=== PATIENT | male | born 1960 | race Caucasian/White ===

== ENCOUNTER 2022-07-10 07:59 | Outpatient (CLI) | payer OTHER, SELFPAY ==
[2022-07-10 11:02] LABS: Cholesterol* 185 mg/dL (90-199)
[2022-07-10 11:03] LABS: HDL Cholesterol* 67 mg/dL (>=40); LDL Cholesterol Calculated 100 mg/dL (<100); Triglycerides* 90 mg/dL (40-149)
[2022-07-10 11:35] LABS: PSA Screen* 1.05 ng/mL (0.10-4.00)
== END 2022-07-10 08:00 | disposition home or self-care (01) ==
LOC: NFLDREF 07:59
PROVIDERS: PCP Family Medicine; Visit Provider Family Medicine
DX: E78.5 Hyperlipidemia, unspecified (principal); Z12.5 Encounter for screening for malignant neoplasm of prostate
CPT/HCPCS: 80061; 84153

== ENCOUNTER 2023-04-18 12:36 | Observation (INO) | payer OTHER, SELFPAY ==
[2023-04-18] VITALS (22 sets, daily range): BP systolic 110–147; BP diastolic 72–102; PULSE 48–63; RESP 11–18; TEMP 36.5–36.6; O2SAT 95–100; BMI 24.1; BMI 25.6
--- NOTE | 2023-04-18 13:31 | CRLHL7_ITS ---
For Patients: As a result of the Century Cures Act, medical imaging exams and procedure reports are released immediately into your electronic medical record. You may view this report before your referring provider. If you have questions, please contact your health care provider. INDICATION: Headache and confusion TECHNIQUE: CT head without contrast. COMPARISON: None. FINDINGS: CSF spaces: Within normal limits for age. Brain parenchyma: The de leon-white differentiation is normal. No sign of mass, hemorrhage, or midline shift. Skull base and calvarium: Mucous retention cyst left maxillary sinus. The visualized orbits are grossly unremarkable. No skull fractures. IMPRESSION: Unremarkable noncontrast head CT. Please note that all CT scans at this facility use dose modulation, iterative reconstruction, and/or weight-based dosing when appropriate to reduce radiation dose to as low as reasonably achievable. Dictated by Andrew Lan MD @ 04/18/2023 1:54:08 PM (Electronically Signed)
--- NOTE | 2023-04-18 13:31 | ED_ITS ---
HPI - General Adult General Time Seen by Provider: 12:43 Date Seen: 04/18/23 Chief complaint: Neuro Symptoms/Altered Deficit Stated complaint: confusion, headache Time Seen by Provider: 04/18/23 12:43 Source: patient, family, RN notes reviewed and old records reviewed Mode of arrival: ambulatory Limitations: no limitations History of Present Illness HPI narrative: Francisco is a very pleasant 62-year-old healthy gentleman who comes to the emergency room with his for complaints of 1 hour confusion and difficulty with word finding. Approximately 1100 hours Francisco noticed he was having a hard time with remembering the names of streets and he states that he was writing emails and nothing would look normal. He feels like he is back to normal now although his states he is probably 75% of normal. He agrees he has a slight headache in the left gnosticism. He notes that he has some blurred vision of his left eye but this has been chronic as he states that he has been recently diagnosed with dry eye by the certified legal secretary specialist and been on drops. He has not noticed a real change in his vision. He denies any numbness or tingling, recent head trauma or falls. He denies any nausea vomiting. He has not had any alcohol today. Related Data Home Medications Medication Instructions Recorded Confirmed hbasevkx-cj-cscbu 300 mcg-K 60 1 tab PO DAILY 04/18/23 05/19/23 mcg-lycop 600 mcg-lutein 300 mcg tablet (Centrum Silver Men) omega 0-lkl-heu-fish oil 1,000 mg 2 cap PO DAILY 04/18/23 05/19/23 (120 mg-180 mg) capsule (Fish Oil) Previous Rx's Medication Instructions Recorded aspirin 81 mg chewable tablet 81 mg PO DAILY #90 tabs 04/19/23 (Children's Aspirin) Allergies Allergy/AdvReac Type Severity Reaction Status Date / Time No Known Allergies Allergy Unknown Unknown Verified 05/19/23 10:48 Review of Systems Status of ROS: Reports: 10 or more systems reviewed and unremarkable except as noted in History and below Eyes: Denies: change in vision ENMT: Denies: neck pain or difficulty swallowing Cardio: Denies: chest pain or shortness of breath with exertion Resp: Denies: shortness of breath GI: Denies: abdominal pain, nausea, vomiting or difficulty swallowing : Denies: painful urination Musculo: Denies: neck pain PFSH PFS Medical History (Updated 04/27/23 @ 00:00 by Background Danohemy) Bright red blood per rectum ?K62.5 - Hemorrhage of anus and rectum (ICD-10) Tubular adenoma of colon ?D12.6 - Benign neoplasm of colon, unspecified (ICD-10) Impingement syndrome of right shoulder ?M75.41 - Impingement syndrome of right shoulder (ICD-10) Surgical History (Updated 04/18/23 @ 19:46 by Mary Beth Todd MD) H/O cataract removal with insertion of prosthetic lens ?Z98.49 - Cataract extraction status, unspecified eye (ICD-10) ?Z96.1 - Presence of intraocular lens (ICD-10) History of laser assisted in situ keratomileusis ?Z98.890 - Other specified postprocedural states (ICD-10) Family History (Updated 04/18/23 @ 19:47 by Mary Beth Todd MD) Mother Primary malignant neoplasm of ocular adnexa Social History (Updated 04/18/23 @ 19:48 by Mary Beth Todd MD) Narrative: . Lives independently. Smoked socially, 1 cig/week for a few years in the . 1-2 beers per day. Denies recreational drug use. What is your current living situation?: I presently have a place to live Problems where you live: no known problems Problems where you live details: n/a In the past 12 months, utilities in danger of being shut off: no In past 12 months, lack of transportation kept you from medical appts, meetings, work, or getting things needed for daily living: no In the past 12 mos, have been you worried that your food would run out before you had money to buy more?: never true In the past 12 mos, the food you bought just didn't last and you didn't have money to buy more?: never true Highest level of school completed/degree received: Bachelor's degree Smoking Status: Never smoker How often do you have a drink containing alcohol: 2-3 times a week Alcohol type: beer and wine How many standard drinks containing alcohol do you have on a typical day: 1 or 2 AUDIT-C Alcohol total score: 3 Non-prescribed substance use: denies use Caffeine: Yes How often does anyone, including family, friends and others, physically hurt you : never How often does anyone, including family, friends and others, insult or talk down to you: never How often does anyone, including family, friends and others, threaten you with harm: never How often does anyone, including family, friends and others, scream or curse at you: never Little interest or pleasure in doing things: not at all Feeling down, depressed, or hopeless: not at all service: No Exam Narrative: Exam Narrative: Patient is alert and oriented. Some hesitation answering questions but answers are appropriate. No evidence of slurred speech. NIH SS 0. EOM is full and pupils equal round reactive. Nose visual field cut. Head is atraumatic normocephalic. Neck is supple. Heart is with regular rate and rhythm and lungs are clear bilaterally. Moving all extremities. Strength and motor all intact. Sensation intact. Const: Vital Signs, click to edit/add: Vital Signs - 24 hr 04/18/23 13:35 04/18/23 14:31 04/18/23 14:46 Temperature 97.9 F Pulse Rate 52 L 49 L Pulse Rate [Right Pulse Oximeter] 60 Respiratory Rate 16 15 14 Blood Pressure 122/89 129/79 Blood Pressure [Ri ght Upper Arm] 145/81 H Pulse Oximetry 98 99 99 Oxygen Delivery Me thod Room Air 04/18/23 15:01 04/18/23 15:16 04/18/23 15:17 Temperature Pulse Rate 53 L 57 L 57 L Pulse Rate [Right Pulse Oximeter] Respiratory Rate 14 14 Blood Pressure 120/79 110/77 Blood Pressure [Ri ght Upper Arm] Pulse Oximetry 99 98 98 Oxygen Delivery Me thod 04/18/23 15:30 04/18/23 15:31 04/18/23 15:45 Temperature Pulse Rate 53 L 53 L 61 Pulse Rate [Right Pulse Oximeter] Respiratory Rate Blood Pressure 125/81 Blood Pressure [Ri ght Upper Arm] Pulse Oximetry 97 98 97 Oxygen Delivery Me thod 04/18/23 15:46 04/18/23 17:22 04/18/23 17:24 Temperature Pulse Rate 63 56 L 50 L Pulse Rate [Right Pulse Oximeter] Respiratory Rate Blood Pressure 124/84 121/81 Blood Pressure [Ri ght Upper Arm] Pulse Oximetry 97 97 99 Oxygen Delivery Me thod Documenting provider has reviewed patient's vital signs: yes Course Course ED Course: 1253: Discussion with Neurology regarding this patient with an NIH SS 0 score of 0. Head CT already accomplished and results are pending. Neurology requests robot to be set up in room 4. Also request ordering of the CTA which I have done. Reevaluation(s) Reevaluation #1: [id number]: Phone call from Radiology that head CT is negative. Vital Signs Vital signs: Initial Vital Signs Temperature 97.9 F 04/18/23 13:35 Temperature Source Temporal Artery Scan 04/18/23 13:35 Pulse Rate 60 04/18/23 13:35 Pulse Rhythm Regular 04/18/23 13:35 Respiratory Rate 16 04/18/23 13:35 Blood Pressure 145/81 H 04/18/23 13:35 Blood Pressure Mean 102 04/18/23 13:35 Blood Pressure Position Sitting 04/18/23 13:35 Pulse Oximetry 98 04/18/23 13:35 Oxygen Delivery Method Room Air 04/18/23 13:35 Vital Signs Temperature 97.9 F 04/18/23 13:35 Pulse Rate 60 04/18/23 13:35 Respiratory Rate 16 04/18/23 13:35 Blood Pressure 145/81 H 04/18/23 13:35 Pulse Oximetry 98 04/18/23 13:35 Oxygen Delivery Method Room Air 04/18/23 13:35 Temperature 98.7 F 04/19/23 11:00 Pulse Rate 58 L 04/19/23 11:00 Respiratory Rate 16 04/19/23 11:00 Blood Pressure 117/73 04/19/23 11:00 Pulse Oximetry 95 04/19/23 11:00 Oxygen Delivery Method Room Air 04/19/23 11:00 Medical Decision Making MDM Narrative Medical decision making narrative: 1. TIA -patient noted to have an NIH as as of 0 but still feels he is only 75% of normal. Privately she discusses with me her concerns about cognitive decline going on for quite some time and lack interaction in discussions. Head CT reassuring but at this time after discussion with neurologist will admit patient for overnight monitoring, aspirin therapy and echocardiogram tomorrow. They are in agreement with our plan. 2. Disposition-admit under the care of Dr. Todd, hospitalist. Medical Records Medical records reviewed: Yes I reviewed the patient's medical records Lab Data Lab results reviewed: Yes I reviewed the patient's lab results Labs: Lab Results 04/18/23 04/18/23 04/18/23 Range/Units 13:50 14:23 15:53 WBC 3.74 L (4.50-11.00) K/uL RBC 4.60 (4.30-5.90) m/uL Hgb 15.2 (13.5-17.5) gm/dL Hct 45.6 (37.0-53.0) % MCV 99 (80-100) fL MCH 33 (26-34) pg MCHC 33 (32-36) gm/dL RDW Coeff of Cosmo 12.3 (11.5-15.5) % Plt Count 190 (140-440) K/uL Neut % (Auto) 60.9 (42.0-72.0) % Lymph % (Auto) 24.9 (20-44) % [place] % (Auto) 11.8 H (0.0-11.0) % Eos % (Auto) 1.6 (0.0-7.0) % Baso % (Auto) 0.8 (0.0-3.0) % Neut # (Auto) 2.30 (1.7-7.0) K/uL Lymph # (Auto) 0.90 (0.90-2.90) K/uL [place] # (Auto) 0.40 (0.00-0.90) K/UL Eos # (Auto) 0.10 (0.00-0.50) K/uL Baso # (Auto) 0.00 (0.00-0.30) K/uL Abs Immat Gran (auto) 0.00 (0.00-0.30) K/uL Imm/Tot Granulo (auto) 0.0 % Sodium 140 (135-149) mmol/L Potassium 4.7 (3.6-5.1) mmol/L Chloride 104 (96-114) mmol/L Carbon Dioxide 29 (20-32) mmol/L Anion Gap 7 (7-15) mEq/L BUN 15 (7-30) mg/dL Creatinine 0.9 (0.5-1.5) mg/dL Estimated Creat Clear 90.12 Estimated GFR 98 ml/min Glucose 97 (60-115) mg/dL Calcium 9.0 (8.4-10.6) mg/dL Magnesium 2.0 (1.5-2.6) mg/dL Total Bilirubin 1.9 H (0.1-1.5) mg/dL GGT 18 (8-55) U/L AST 28 (12-35) U/L ALT 16 (4-50) U/L Alkaline Phosphatase 42 (40-150) U/L C-Reactive Protein < 0.5 L (0.5-1.0) mg/dL Total Protein 7.6 (6.0-8.3) g/dL Albumin 4.5 (3.3-5.0) g/dL TSH 1.250 (0.270-4.200) uIU/mL Urine Color Yellow (Yellow) Urine Appearance Clear (Clear) Urine pH 5.5 (5.0-8.5) Ur Specific [place] 1.010 (1.000-1.030) Urine Protein Negative (Negative) Urine Glucose (UA) Negative (Negative) Urine Ketones Negative (Negative) Urine Blood Negative (Negative) Urine Nitrite Negative (Negative) Urine Bilirubin Negative (Negative) Urine Urobilinogen 0.2 (0.2-1.0) Ur Leukocyte Esterase Negative (Negative) Urine RBC 0-2 (0-2) Urine WBC 0-2 (0-5) Ur Squamous Epith Cells None (None-Few) Urine Bacteria None (None) Urine Opiates Screen Negative (Negative) Ur Oxycodone Screen Negative (Negative) Urine Methadone Screen Negative (Negative) Ur Propoxyphene Screen Negative (Negative) Ur Barbiturates Screen Negative (Negative) U Tricyclic Antidepress Negative (Negative) Ur Phencyclidine Scrn Negative (Negative) Ur Amphetamines Screen Negative (Negative) U Methamphetamines Scrn Negative (Negative) U Benzodiazepines Scrn Negative (Negative) Urine Cocaine Screen Negative (Negative) U Marijuana (THC) Screen Negative (Negative) Ur Drug Screen Comment See Note Ethyl Alcohol < 0.01 L (0.01-0.03) % Lab Acknowledgement Test Added Imaging Data CT scan - head: Attestation: I have reviewed the pertinent imaging results. My impression: I did not note any acute findings. Radiologist's impression: CSF spaces: Within normal limits for age. Brain parenchyma: The de leon-white differentiation is normal. No sign of mass, hemorrhage, or midline shift. Skull base and calvarium: Mucous retention cyst left maxillary sinus. The visualized orbits are grossly unremarkable. No skull fractures. IMPRESSION: Unremarkable noncontrast head CT. CT angio head and neck: Attestation: I have reviewed the pertinent imaging results. Radiologist's impression: [address] [address] Diagnostic Imaging Report Patient: Francisco Lee MR#: [id number] : 1960 Acct:[id number] Loc: ED Service Date: 04/18/[address]: Ordering Physician: Odilia Amaro M.D. Date of Service: 04/18/23 Procedure(s): CT angio head Accession Number(s): [id number] cc: Charlie Holland M.D.; Odilia Amaro M.D.~ For Patients: As a result of the Cures Act, medical imaging exams and procedure reports are released immediately into your electronic medical record. You may view this report before your referring provider. If you have questions, please contact your health care provider. CT ANGIOGRAM HEAD DATE: CLINICAL HISTORY: Patient with TECHNIQUE: Standard helical CT image acquisition through the intracranial circulation following intravenous administration of contrast material with bolus tracking. 2D and 3D MIP images for post-processing were performed and interpreted on an independent workstation and 3D images were permanently archived. COMPARISON: CT same day. FINDINGS: There is no proximal intracranial large vessel occlusion. There is no intracranial aneurysm. The right internal carotid artery is normal. The right middle cerebral artery and its branches are normal. The right anterior cerebral artery and its branches are normal. The left internal carotid artery is normal. The left middle cerebral artery and its branches are normal. The left anterior cerebral artery and its branches are normal. The anterior communicating artery is well visualized and appears normal. The right vertebral artery and PICA are normal. The left vertebral artery and PICA are normal. The left vertebral artery is dominant. The basilar artery is patent and appears normal. The right posterior cerebral artery is normal. The left posterior cerebral artery is normal. The visualized venous structures are patent. IMPRESSION: Patent proximal intracranial vasculature. here is no proximal intracranial large vessel occlusion. There is no intracranial aneurysm. The right internal carotid artery is normal. The right middle cerebral artery and its branches are normal. The right anterior cerebral artery and its branches are normal. The left internal carotid artery is normal. The left middle cerebral artery and its branches are normal. The left anterior cerebral artery and its branches are normal. The anterior communicating artery is well visualized and appears normal. The right vertebral artery and PICA are normal. The left vertebral artery and PICA are normal. The left vertebral artery is dominant. The basilar artery is patent and appears normal. The right posterior cerebral artery is normal. The left posterior cerebral artery is normal. The visualized venous structures are patent. IMPRESSION: Patent proximal intracranial vasculature. The origins of the great vessels from the aortic arch are patent. The origin of the right vertebral artery is patent. The origin of the left vertebral artery is patent. The common carotid arteries are patent. There is no stenosis at the origin of the right internal carotid artery. There is no stenosis at the origin of the left internal carotid artery. The rest of the cervical segments of the internal carotid arteries are patent up to the skull base. The vertebral arteries are codominant. The cervical segments of the vertebral arteries are patent up to the skull base. The visualized lung apices are unremarkable. The thyroid gland is unremarkable. The soft tissues of the neck are unremarkable. There are degenerative changes in the cervical spine. IMPRESSION: Normal CTA of the neck. MR Brain: Attestation: I have reviewed the pertinent imaging results. Radiologist's impression: No evidence of acute ischemia. No evidence of acute or chronic intracranial blood products. Multiple small FLAIR hyperintensities scattered within the supratentorial white matter, typical for chronic microvascular ischemic change. No mass effect or herniation. No hydrocephalus or extra-axial collections. The pituitary gland, parasellar structures and optic chiasm are normal. Posterior fossa is normal. All the major intracranial vascular structures demonstrate normal flow-related signal. The orbital contents are normal. A right scleral buckle is noted. No calvarial or skull base marrow replacing process. A large left maxillary sinus retention cyst. No extracranial soft tissue findings. IMPRESSION: 1. No acute infarction or other acute intracranial pathology. 2. Mild chronic microvascular ischemic changes. ECG Data Attestation: I personally reviewed and interpreted this ECG as follows: Interpretation: Sinus bradycardia at a rate of 55. Q-waves noted in V1 V2 but no evidence of acute coronary syndrome with no ST or T-wave changes in the other leads. QT and MO intervals within normal limits. Discharge Plan Discharge Clinical Impression: Expressive aphasia Patient Disposition: Admitted As Observation Condition: Improved Activity Level: Activity as Tolerated Discharge Diet: Regular
--- NOTE | 2023-04-18 13:51 | CRLHL7_ITS ---
For Patients: As a result of the Century Cures Act, medical imaging exams and procedure reports are released immediately into your electronic medical record. You may view this report before your referring provider. If you have questions, please contact your health care provider. CT ANGIOGRAM NECK DATE: 04/18/2023 CLINICAL HISTORY: Patient with confusion and headache. TECHNIQUE: Standard helical CT image acquisition of the neck up to the skull base after bolus intravenous contrast enhancement. 2D and 3D MIP images for post-processing were performed and interpreted on an independent workstation and 3D images were permanently archived. COMPARISON: CT same day. FINDINGS: The origins of the great vessels from the aortic arch are patent. The origin of the right vertebral artery is patent. The origin of the left vertebral artery is patent. The common carotid arteries are patent. There is no stenosis at the origin of the right internal carotid artery. There is no stenosis at the origin of the left internal carotid artery. The rest of the cervical segments of the internal carotid arteries are patent up to the skull base. The vertebral arteries are codominant. The cervical segments of the vertebral arteries are patent up to the skull base. The visualized lung apices are unremarkable. The thyroid gland is unremarkable. The soft tissues of the neck are unremarkable. There are degenerative changes in the cervical spine. IMPRESSION: Normal CTA of the neck. Please note that all CT scans at this facility use dose modulation, iterative reconstruction, and/or weight-based dosing when appropriate to reduce radiation dose to as low as reasonably achievable. Dictated by: Dulce Maria Gomes MD @ 04/18/2023 14:44:49 (Electronically Signed)
--- NOTE | 2023-04-18 13:51 | CRLHL7_ITS ---
For Patients: As a result of the Century Cures Act, medical imaging exams and procedure reports are released immediately into your electronic medical record. You may view this report before your referring provider. If you have questions, please contact your health care provider. CT ANGIOGRAM HEAD DATE: CLINICAL HISTORY: Patient with TECHNIQUE: Standard helical CT image acquisition through the intracranial circulation following intravenous administration of contrast material with bolus tracking. 2D and 3D MIP images for post-processing were performed and interpreted on an independent workstation and 3D images were permanently archived. COMPARISON: CT same day. FINDINGS: There is no proximal intracranial large vessel occlusion. There is no intracranial aneurysm. The right internal carotid artery is normal. The right middle cerebral artery and its branches are normal. The right anterior cerebral artery and its branches are normal. The left internal carotid artery is normal. The left middle cerebral artery and its branches are normal. The left anterior cerebral artery and its branches are normal. The anterior communicating artery is well visualized and appears normal. The right vertebral artery and PICA are normal. The left vertebral artery and PICA are normal. The left vertebral artery is dominant. The basilar artery is patent and appears normal. The right posterior cerebral artery is normal. The left posterior cerebral artery is normal. The visualized venous structures are patent. IMPRESSION: Patent proximal intracranial vasculature. Please note that all CT scans at this facility use dose modulation, iterative reconstruction, and/or weight-based dosing when appropriate to reduce radiation dose to as low as reasonably achievable. Dictated by: Dulce Maria Gomes MD @ 04/18/2023 14:46:19 (Electronically Signed)
[2023-04-18 14:06] LABS: Basophils Percent Auto 0.8 % (0.0-3.0); Eosinophils Percent Auto 1.6 % (0.0-7.0); Hematocrit 45.6 % (37.0-53.0); Hemoglobin* 15.2 gm/dL (13.5-17.5); Lymphocytes Percent Auto 24.9 % (20-44); Mean Corpuscular HGB Conc 33 gm/dL (32-36); Mean Corpuscular Hemoglobin 33 pg (26-34); Mean Corpuscular Volume 99 fL (80-100); Monocytes Percent Auto 11.8 % (0.0-11.0); Neutrophils Percent Auto 60.9 % (42.0-72.0); Platelet Count* 190 K/uL (140-440); RDW Coefficient of Variation % 12.3 % (11.5-15.5); White Blood Count* 3.74 K/uL (4.50-11.00)
[2023-04-18 14:11] LABS: Slide Review Reflex No
[2023-04-18 14:16] LABS: Albumin* 4.5 g/dL (3.3-5.0); Chloride* 104 mmol/L (96-114)
[2023-04-18 14:17] LABS: Potassium* 4.7 mmol/L (3.6-5.1); Sodium* 140 mmol/L (135-149)
[2023-04-18 14:19] LABS: Anion Gap 7 mEq/L (7-15); Bilirubin Total* 1.9 mg/dL (0.1-1.5); Carbon Dioxide* 29 mmol/L (20-32); Creatinine* 0.9 mg/dL (0.5-1.5); Est. Creatinine Clearance* 90.12; Estimated Glomerular Filt Rate 98 ml/min; Total Protein* 7.6 g/dL (6.0-8.3)
[2023-04-18 14:20] LABS: Alanine Aminotransferase* 16 U/L (4-50); Alkaline Phosphatase* 42 U/L (40-150); Aspartate Amino Transferase* 28 U/L (12-35); Blood Urea Nitrogen* 15 mg/dL (7-30); Glucose* 97 mg/dL (60-115)
[2023-04-18 14:25] LABS: Ethanol* < 0.01 % (0.01-0.03)
--- NOTE | 2023-04-18 14:33 | CRLHL7_ITS ---
For Patients: As a result of the Century Cures Act, medical imaging exams and procedure reports are released immediately into your electronic medical record. You may view this report before your referring provider. If you have questions, please contact your health care provider. INDICATION: Confusion. TECHNIQUE: Brain MRI without contrast. The following sequences were obtained: Sagittal T1 weighted sequence. DWI and ADC mapping sequences. Axial FLAIR and BRITTANI T2 weighted sequences. Susceptibility or GRE sequence. COMPARISON: None. FINDINGS: No evidence of acute ischemia. No evidence of acute or chronic intracranial blood products. Multiple small FLAIR hyperintensities scattered within the supratentorial white matter, typical for chronic microvascular ischemic change. No mass effect or herniation. No hydrocephalus or extra-axial collections. The pituitary gland, parasellar structures and optic chiasm are normal. Posterior fossa is normal. All the major intracranial vascular structures demonstrate normal flow-related signal. The orbital contents are normal. A right scleral buckle is noted. No calvarial or skull base marrow replacing process. A large left maxillary sinus retention cyst. No extracranial soft tissue findings. IMPRESSION: 1. No acute infarction or other acute intracranial pathology. 2. Mild chronic microvascular ischemic changes. Dictated by Jesus Durbin MD @ 04/18/2023 5:36:01 PM (Electronically Signed)
[2023-04-18] MEDS: ASPIRIN 81 MG TAB.CHEW PO (14:39)
--- NOTE | 2023-04-18 15:08 | ED.NURSE ---
1356-ED MD exam complete. Stroke Neuro Tele Camera ready in room. GCS 15. 1357-EKG done by EDT. 1403-#18g IV established in L AC. 1404-Pt to CT. 1414-Pt back from CT. declines title insurance examiner. GCS 15. 1511-Continues to wait for MRI-per Stroke/Neuro recs.
[2023-04-18 16:12] LABS: Appearance Urine Clear (Clear); Bilirubin Urine Negative (Negative); Blood Urine Negative (Negative); Color Urine Yellow (Yellow); Glucose Urine Negative (Negative); Ketones Urine Negative (Negative); Leukocyte Esterase Urine Negative (Negative); Nitrite Urine Negative (Negative); Protein Urine Negative (Negative); Urobilinogen Urine 0.2 (0.2-1.0); pH Urine 5.5 (5.0-8.5)
[2023-04-18 16:19] LABS: Amphetamine Screen Urine Negative (Negative); Barbiturate Screen Urine Negative (Negative); Benzodiazepines Screen Urine Negative (Negative); Cannabinoid Screen Urine Negative (Negative); Cocaine Screen Urine Negative (Negative); Methadone Screen Urine Negative (Negative); Methamphetamines Screen Urine Negative (Negative); Opiate Screen Urine Negative (Negative); Oxycodone Screen Urine Negative (Negative); Phencyclidine Screen Urine Negative (Negative); Tricyclic Antidepressant Urine Negative (Negative)
--- NOTE | 2023-04-18 16:36 | ED.NURSE ---
1625-Pt to MR via w/c.
[2023-04-18 16:37] LABS: RBC Urine 0-2 (0-2); WBC Urine 0-2 (0-5)
--- NOTE | 2023-04-18 18:50 | ED.NURSE ---
Report given to Kg Celestin/S JO-ANN. Pt will go to Rm 255.
--- NOTE | 2023-04-18 19:48 | PM.IMHP1 ---
Hospitalist- H&P: HPI History of Present Illness Time Seen by Provider: 19:35 Date Seen: 04/18/23 Chief complaint: confusion, headache Narrative: Francisco Lee is a 62 year old healthy male who was in his usual state of health at work when he suddenly felt like he had lost focus and had trouble concentrating at 11:00 a.m.. Prior to that he had been feeling fine. 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 After the me he was trying to do some emails and other work when he suddenly noticed his right eye vision changed and felt glassy like something was in the way or there was a wavy interference. He denies any flashing lights. He said that he gets these symptoms about once a month, always in the morning, usually while in the shower, and then it goes away very quickly. Today it was unusual because he never had it that late in the morning. It lasted for a few minutes and then he started noticing left eye and zoroastrian pain and felt that he was having difficulty concentrating, had lost his ability to focus, could not find the right words to say and had difficulty concentrating especially when people were in the room. He denies any focal numbness, weakness or tingling. He says that people at work did not seem to know that he was having any difficulty, but when he got home about an hour later his noticed that he was not engaging well. He said that he had not eaten since early in the morning and he thought that maybe being hungry had something to do with this. He has never had a migraine headache. Nobody in his family has migraine headaches. He feels completely back to normal now. He looked at some of the writing and emails that he had been working on earlier in the day and says that they do not make sense and the writing seems confused. He and his took a trip to [facility] [facility] this past weekend where they visited an [employer] farm and did some hiking there. He did not note any mosquitoes or ticks. He has no other travel or exposures. His is not present here in the hospital room, although she was present in the ER earlier today. He tells me that his thinks that he has lost track of information and seemed more out of focus over the last few weeks to months. He also tells me that he has had a long history of difficulty remembering things. He recalls multiple incidence of head trauma as a child from falling on the ice while ice skating. He has had no mood motor vehicle accidents or other head trauma. He always attributed his memory problems to hitting his head on the ice as a child. He was seen by tele Neurology, Dr. Ward, in the emergency department. The ER provider told me that Dr. Ward recommended observation overnight, a baby aspirin daily, and an echocardiogram tomorrow and that Dr. Ward will call back to re-evaluate the patient tomorrow. Also of note is that he recently saw his primary care provider for 2 days of bright red blood per rectum with a few spots on the toilet paper when he wiped. This was 1 month ago. He has not had any since. He gets constipated frequently and he says that his doctor thinks it was hemorrhoids or a fissure. He spoke with his primary care provider on the 2nd day that it was happening. He says they reviewed his recent colonoscopy and history of tubular adenoma and he is due for another colonoscopy in 2024. He says that no further workup was recommended for the 2 days of bright red blood per rectum. Review of Systems Status of ROS: Reports: 10 or more systems reviewed and unremarkable except as noted in History and below Eyes: Reports: change in vision (as above), blurry vision (Left eye - saw commodities trader - dx dry eye) and floaters (chronic) [facility] Medical History (Updated 04/18/23 @ 21:27 by Mary Beth Todd MD) Bright red blood per rectum ?K62.5 - Hemorrhage of anus and rectum (ICD-10) Tubular adenoma of colon ?D12.6 - Benign neoplasm of colon, unspecified (ICD-10) Impingement syndrome of right shoulder ?M75.41 - Impingement syndrome of right shoulder (ICD-10) Surgical History (Updated 04/18/23 @ 19:46 by Mary Beth Todd MD) H/O cataract removal with insertion of prosthetic lens ?Z98.49 - Cataract extraction status, unspecified eye (ICD-10) ?Z96.1 - Presence of intraocular lens (ICD-10) History of laser assisted in situ keratomileusis ?Z98.890 - Other specified postprocedural states (ICD-10) Family History (Updated 04/18/23 @ 19:47 by Mary Beth Todd MD) Mother Primary malignant neoplasm of ocular adnexa Social History (Updated 04/18/23 @ 19:48 by Mary Beth Todd MD) Narrative: . Lives independently. Smoked socially, 1 cig/week for a few years in the . 1-2 beers per day. Denies recreational drug use. What is your current living situation?: I presently have a place to live Problems where you live: no known problems Problems where you live details: n/a In the past 12 months, utilities in danger of being shut off: no In past 12 months, lack of transportation kept you from medical appts, meetings, work, or getting things needed for daily living: no In the past 12 mos, have been you worried that your food would run out before you had money to buy more?: never true In the past 12 mos, the food you bought just didn't last and you didn't have money to buy more?: never true Highest level of school completed/degree received: Bachelor's degree Smoking Status: Never smoker How often do you have a drink containing alcohol: 2-3 times a week Alcohol type: beer and wine How many standard drinks containing alcohol do you have on a typical day: 1 or 2 AUDIT-C Alcohol total score: 3 Non-prescribed substance use: denies use Caffeine: Yes How often does anyone, including family, friends and others, physically hurt you: never How often does anyone, including family, friends and others, insult or talk down to you: never How often does anyone, including family, friends and others, threaten you with harm: never How often does anyone, including family, friends and others, scream or curse at you: never Little interest or pleasure in doing things: not at all Feeling down, depressed, or hopeless: not at all service: No Meds Home Medications and Allergies Home Medications Medication Instructions Recorded Confirmed Type [id number] 300 mcg-K 60 1 tab PO DAILY 04/18/23 04/18/23 History mcg-lycop 600 mcg-lutein 300 mcg tablet (Centrum Silver Men) omega 7-vjn-gzm-fish oil 1,000 mg 2 cap PO DAILY 04/18/23 04/18/23 History (120 mg-180 mg) capsule (Fish Oil) Allergies Allergy/AdvReac Type Severity Reaction Status Date / Time No Known Allergies Allergy Unknown Unknown Verified 04/07/23 10:37 Exam Narrative: Exam Narrative: General: No acute distress. Awake alert oriented x3. Fully dressed and sitting in the chair. Able to carry on a conversation without difficulty and was able to talk about and described the events of today without difficulty. He did have difficulty remembering names of things in the past such as the historical site he was at just this past weekend his . HEENT: Normocephalic atraumatic, pupils equally round and reactive to light and accommodation. Oropharynx clear. Mucous membranes are moist. No cervical lymphadenopathy, thyromegaly or carotid bruits. No JVD. Cardiovascular: Regular rate and rhythm. No murmurs, gallops, or rubs. Chest: No increased work of breathing. Clear to auscultation bilaterally. No crackles or wheezes. Abdomen: Bowel sounds present. Soft, nondistended, nontender. No hepatosplenomegaly or masses. Extremities: No edema, no cyanosis or clubbing. Skin: No jaundice, no pallor, no rashes. Neuro: There are no focal deficits. Romberg is negative. Cranial nerves 2-12 are intact. Extraocular movements are full. No nystagmus. No facial asymmetry. Tongue is midline. Peripheral vision and vision are grossly intact. Strength is 5/5 in all 4 extremities. Light touch sensation is intact in face body and extremities. Coordination is intact in upper and lower extremities. Const: Vital Signs, click to edit/add: Vital Signs - 24 hr 04/18/23 13:35 04/18/23 14:31 04/18/23 14:46 Temperature 97.9 F Pulse Rate 52 L 49 L Pulse Rate [Right Pulse Oximeter] 60 Respiratory Rate 16 15 14 Blood Pressure 122/89 129/79 Blood Pressure [Ri ght Upper Arm] 145/81 H Pulse Oximetry 98 99 99 Oxygen Delivery Me thod Room Air 04/18/23 15:01 04/18/23 15:16 04/18/23 15:17 Temperature Pulse Rate 53 L 57 L 57 L Pulse Rate [Right Pulse Oximeter] Respiratory Rate 14 14 Blood Pressure 120/79 110/77 Blood Pressure [Ri ght Upper Arm] Pulse Oximetry 99 98 98 Oxygen Delivery Me thod 04/18/23 15:30 04/18/23 15:31 04/18/23 15:45 Temperature Pulse Rate 53 L 53 L 61 Pulse Rate [Right Pulse Oximeter] Respiratory Rate Blood Pressure 125/81 Blood Pressure [Ri ght Upper Arm] Pulse Oximetry 97 98 97 Oxygen Delivery Me thod 04/18/23 15:46 04/18/23 17:22 04/18/23 17:24 Temperature Pulse Rate 63 56 L 50 L Pulse Rate [Right Pulse Oximeter] Respiratory Rate Blood Pressure 124/84 121/81 Blood Pressure [Ri ght Upper Arm] Pulse Oximetry 97 97 99 Oxygen Delivery Me thod 04/18/23 17:31 04/18/23 17:47 04/18/23 18:02 Temperature Pulse Rate 54 L 51 L 51 L Pulse Rate [Right Pulse Oximeter] Respiratory Rate 14 14 12 Blood Pressure 128/81 147/96 H 115/102 H Blood Pressure [Ri ght Upper Arm] Pulse Oximetry 99 100 99 Oxygen Delivery Me thod 04/18/23 18:17 04/18/23 18:31 04/18/23 18:46 Temperature Pulse Rate 50 L 48 L 54 L Pulse Rate [Right Pulse Oximeter] Respiratory Rate 12 11 L 12 Blood Pressure 128/84 145/89 H 128/80 Blood Pressure [Ri ght Upper Arm] Pulse Oximetry 99 99 98 Oxygen Delivery Me od Room Air 04/18/23 18:56 Temperature 97.9 F Pulse Rate Pulse Rate [Right Pulse Oximeter] 60 Respiratory Rate 12 Blood Pressure Blood Pressure [Ri ght Upper Arm] 145/81 H Pulse Oximetry Oxygen Delivery Me od Hospitalist - H&P: Result Labs Labs: Short CBC 04/18/23 Range/Units 13:50 WBC 3.74 L (4.50-11.00) K/uL Hgb 15.2 (13.5-17.5) gm/dL Hct 45.6 (37.0-53.0) % Plt Count 190 (140-440) K/uL BMP 04/18/23 13:50 Sodium 140 Potassium 4.7 Chloride 104 Carbon Dioxide 29 BUN 15 Creatinine 0.9 Glucose 97 Calcium 9.0 Liver Function 04/18/23 Range/Units 13:50 Total Bilirubin 1.9 H (0.1-1.5) mg/dL AST 28 (12-35) U/L ALT 16 (4-50) U/L Alkaline Phosphatase 42 (40-150) U/L Albumin 4.5 (3.3-5.0) g/dL Urine 04/18/23 Range/Units 15:53 Urine Color Yellow (Yellow) Urine Appearance Clear (Clear) Urine pH 5.5 (5.0-8.5) Ur Specific [place] 1.010 (1.000-1.030) Urine Protein Negative (Negative) Urine Glucose (UA) Negative (Negative) 04/18/2023 EKG: Sinus bradycardia, 55 beats per minute, otherwise normal EKG. Ordering Physician: Odilia Amaro M.D. Date of Service: 04/18/23 Procedure(s): CT head/brain wo con Accession Number(s): [id number] cc: Charlie Holland M.D.; Odilia Amaro M.D.~ For Patients: As a result of the Cures Act, medical imaging exams and procedure reports are released immediately into your electronic medical record. You may view this report before your referring provider. If you have questions, please contact your health care provider. INDICATION: Headache and confusion TECHNIQUE: CT head without contrast. COMPARISON: None. FINDINGS: CSF spaces: Within normal limits for age. Brain parenchyma: The de leon-white differentiation is normal. No sign of mass, hemorrhage, or midline shift. Skull base and calvarium: Mucous retention cyst left maxillary sinus. The visualized orbits are grossly unremarkable. No skull fractures. IMPRESSION: Unremarkable noncontrast head CT. Please note that all CT scans at this facility use dose modulation, iterative reconstruction, and/or weight-based dosing when appropriate to reduce radiation dose to as low as reasonably achievable. Dictated by Andrew Lan MD @ 04/18/2023 1:54:08 PM (Electronically Signed) Ordering Physician: Odilia Amaro M.D. Date of Service: 04/18/23 Procedure(s): CT angio head Accession Number(s): [id number] cc: Charlie Holland M.D.; Odilia Amaro M.D.~ For Patients: As a result of the Cures Act, medical imaging exams and procedure reports are released immediately into your electronic medical record. You may view this report before your referring provider. If you have questions, please contact your health care provider. CT ANGIOGRAM HEAD DATE: CLINICAL HISTORY: Patient with TECHNIQUE: Standard helical CT image acquisition through the intracranial circulation following intravenous administration of contrast material with bolus tracking. 2D and 3D MIP images for post-processing were performed and interpreted on an independent workstation and 3D images were permanently archived. COMPARISON: CT same day. FINDINGS: There is no proximal intracranial large vessel occlusion. There is no intracranial aneurysm. The right internal carotid artery is normal. The right middle cerebral artery and its branches are normal. The right anterior cerebral artery and its branches are normal. The left internal carotid artery is normal. The left middle cerebral artery and its branches are normal. The left anterior cerebral artery and its branches are normal. The anterior communicating artery is well visualized and appears normal. The right vertebral artery and PICA are normal. The left vertebral artery and PICA are normal. The left vertebral artery is dominant. The basilar artery is patent and appears normal. The right posterior cerebral artery is normal. The left posterior cerebral artery is normal. The visualized venous structures are patent. IMPRESSION: Patent proximal intracranial vasculature. Please note that all CT scans at this facility use dose modulation, iterative reconstruction, and/or weight-based dosing when appropriate to reduce radiation dose to as low as reasonably achievable. Dictated by: Dulce Maria Gomes MD @ 04/18/2023 14:46:19 (Electronically Signed) Ordering Physician: Odilia Amaro M.D. Date of Service: 04/18/23 Procedure(s): CT angio neck Accession Number(s): [id number] cc: Charlie Holland M.D.; Odilia Amaro M.D.~ For Patients: As a result of the Century Cures Act, medical imaging exams and procedure reports are released immediately into your electronic medical record. You may view this report before your referring provider. If you have questions, please contact your health care provider. CT ANGIOGRAM NECK DATE: 04/18/2023 CLINICAL HISTORY: Patient with confusion and headache. TECHNIQUE: Standard helical CT image acquisition of the neck up to the skull base after bolus intravenous contrast enhancement. 2D and 3D MIP images for post-processing were performed and interpreted on an independent workstation and 3D images were permanently archived. COMPARISON: CT same day. FINDINGS: The origins of the great vessels from the aortic arch are patent. The origin of the right vertebral artery is patent. The origin of the left vertebral artery is patent. The common carotid arteries are patent. There is no stenosis at the origin of the right internal carotid artery. There is no stenosis at the origin of the left internal carotid artery. The rest of the cervical segments of the internal carotid arteries are patent up to the skull base. The vertebral arteries are codominant. The cervical segments of the vertebral arteries are patent up to the skull base. The visualized lung apices are unremarkable. The thyroid gland is unremarkable. The soft tissues of the neck are unremarkable. There are degenerative changes in the cervical spine. IMPRESSION: Normal CTA of the neck. Please note that all CT scans at this facility use dose modulation, iterative reconstruction, and/or weight-based dosing when appropriate to reduce radiation dose to as low as reasonably achievable. Dictated by: Dulce Maria Gomes MD @ 04/18/2023 14:44:49 (Electronically Signed) Ordering Physician: Odilia Amaro M.D. Date of Service: 04/18/23 Procedure(s): MR head/brain wo con Accession Number(s): [id number] cc: Charlie Holland M.D.; Odilia Amaro M.D.~ For Patients: As a result of the Century Cures Act, medical imaging exams and procedure reports are released immediately into your electronic medical record. You may view this report before your referring provider. If you have questions, please contact your health care provider. INDICATION: Confusion. TECHNIQUE: Brain MRI without contrast. The following sequences were obtained: Sagittal T1 weighted sequence. DWI and ADC mapping sequences. Axial FLAIR and BRITTANI T2 weighted sequences. Susceptibility or GRE sequence. COMPARISON: None. FINDINGS: No evidence of acute ischemia. No evidence of acute or chronic intracranial blood products. Multiple small FLAIR hyperintensities scattered within the supratentorial white matter, typical for chronic microvascular ischemic change. No mass effect or herniation. No hydrocephalus or extra-axial collections. The pituitary gland, parasellar structures and optic chiasm are normal. Posterior fossa is normal. All the major intracranial vascular structures demonstrate normal flow-related signal. The orbital contents are normal. A right scleral buckle is noted. No calvarial or skull base marrow replacing process. A large left maxillary sinus retention cyst. No extracranial soft tissue findings. IMPRESSION: 1. No acute infarction or other acute intracranial pathology. 2. Mild chronic microvascular ischemic changes. Dictated by Jesus Durbin MD @ 04/18/2023 5:36:01 PM (Electronically Signed) Assessment and Plan Assessment and plan (1) Expressive aphasia: Problem comment: No stroke seen on CTA or MRI. This is possibly a TIA versus migraine headache versus other. Neuro exam is unremarkable at this time it appears that his symptoms have completely resolved. Appreciate Dr. Ward's recommendations. Admit for observation on telemetry, with serial neuro exams, and with an echocardiogram in the morning. Additionally aspirin was given in the emergency department and I will start him on a baby aspirin daily. I will also have Occupational therapy see him to do a mini-mental status exam since he has had a longstanding history of difficulty remembering things. He may need further neuro cognitive testing as an outpatient. Status: Acute
[2023-04-18] MEDS: ACETAMINOPHEN 325 MG TABLET 650 MG PO (22:02)
[2023-04-19 03:33] VITALS: BP 108/63; PULSE 50; RESP 16; TEMP 36.8; O2SAT 96
--- NOTE | 2023-04-19 06:41 | PC.NURSE ---
End of shift [id number]: A&O pleasant and cooperative. VSS w/ sats >90% on RA. Neuros unremarkable. Reporting headache rating it 2/10. Tylenol given w/ stated relief. Up at [facility].
[2023-04-19 07:00] VITALS: BP 100/70; PULSE 54; PULSE 61; RESP 16; TEMP 37.1; O2SAT 95
[2023-04-19 08:26] LABS: Basophils Percent Auto 0.9 % (0.0-3.0); Eosinophils Percent Auto 3.2 % (0.0-7.0); Hemoglobin* 14.6 gm/dL (13.5-17.5); Mean Corpuscular HGB Conc 33 gm/dL (32-36); Mean Corpuscular Hemoglobin 33 pg (26-34); Mean Corpuscular Volume 100 fL (80-100); Monocytes Percent Auto 12.3 % (0.0-11.0); Neutrophils Percent Auto 59.6 % (42.0-72.0); Platelet Count* 170 K/uL (140-440); RDW Coefficient of Variation % 12.5 % (11.5-15.5); Red Blood Count 4.42 m/uL (4.30-5.90); White Blood Count* 3.41 K/uL (4.50-11.00)
[2023-04-19 08:27] LABS: Albumin* 4.1 g/dL (3.3-5.0); Chloride* 105 mmol/L (96-114); Sodium* 137 mmol/L (135-149)
[2023-04-19 08:28] LABS: Potassium* 4.3 mmol/L (3.6-5.1)
[2023-04-19 08:30] LABS: Creatinine* 0.9 mg/dL (0.5-1.5); Est. Creatinine Clearance* 87.28; Estimated Glomerular Filt Rate 98 ml/min; INR 1.06 (0.91-1.10); Prothrombin Time 14.5 Seconds
[2023-04-19 08:31] LABS: Alanine Aminotransferase* 15 U/L (4-50); Alkaline Phosphatase* 39 U/L (40-150); Anion Gap 5 mEq/L (7-15); Aspartate Amino Transferase* 25 U/L (12-35); Bilirubin Total* 2.6 mg/dL (0.1-1.5); Blood Urea Nitrogen* 17 mg/dL (7-30); Calcium* 8.8 mg/dL (8.4-10.6); Carbon Dioxide* 27 mmol/L (20-32); Gamma Glutamyl Transpeptidase* 17 U/L (8-55); Glucose* 93 mg/dL (60-115); Total Protein* 6.9 g/dL (6.0-8.3)
[2023-04-19 08:33] LABS: Slide Review Reflex No
[2023-04-19 08:34] LABS: C Reactive Protein* < 0.5 mg/dL (0.5-1.0)
[2023-04-19 09:03] LABS: Gamma Glutamyl Transpeptidase* 18 U/L (8-55)
[2023-04-19 09:17] LABS: C Reactive Protein* < 0.5 mg/dL (0.5-1.0)
[2023-04-19] MEDS: ASPIRIN 81 MG TAB.CHEW PO (09:19)
[2023-04-19] MEDS: SODIUM CHLORIDE 0.9 % (FLUSH) 10 ML SYRINGE 5 ML IVF (09:19)
[2023-04-19 11:00] VITALS: BP 117/73; PULSE 58; RESP 16; TEMP 37.1; O2SAT 95
[2023-04-19] MEDS: CLOPIDOGREL 75 MG TABLET PO (14:47)
--- NOTE | 2023-04-19 16:45 | P.DS_ITS ---
DS: Providers Provider Date Seen: 04/19/23 Date of admission: 04/18/23 18:58 Primary care physician: Charlie Holland MD Admitting Clinician: Mary Beth Todd MD Consults: 04/18/23 21:05 Consult to Occupational Therapy [CONS] Routine Comment: Reason(s) for OT Consult:: Evaluate and Treat Any Restrictions?:: No Restrictions Attending Physician on discharge: Maura Khan MD [facility] Date of Discharge: 04/19/23 DS: Diagnosis Discharge Diagnosis (1) TIA (transient ischemic attack): Status: Acute Problem details: -in discussion with [facility] stroke neuro; presumably embolic in nature. Imaging reviewed. Echo shows a positive bubble study. This may indicate a PFO. This may support our thoughts of a likely embolic TIA following from his PFO. Cardiology consult as an outpatient is recommended he does through [place] or [facility]. -dual anti-platelet therapy for at least 21 days,Plavix 75 mg started today 04/19/2023. 81 mg aspirin also started on 04/19/2023 -outpatient neurology follow-up recommended Final Impressions: 1. Normal left ventricular size, mildly increased wall thickness, normal global systolic function, calculated EF of 59 %. 2. Right ventricular cavity size is normal, global systolic RV function is normal. 3. The aortic valve is trileaflet and sclerotic, no stenosis and no regurgitation. 4. Very mild bileaflet mitral valve prolapse with trace MR. 5. Normal estimated RA (3 mmHg) and RV systolic (28 mmHg) pressures. 6. With agitated saline contrast there are sparse bubbles evident in LA/LV. Timing relative to opacification of right sided structures with contrast cannot be determined to discriminate cardiac and pulmonary sites of shunting. Qualitatively similar results with Valsalva. No atrial level shunt evident by color Doppler. (2) PFO (patent foramen ovale): Status: Acute Problem details: -outpatient cardiology follow-up recommended. Possible KATHY? -dual anti-platelet therapy at discharge (3) Expressive aphasia: Status: Acute Problem details: Resolved within 4-6 hours of total duration. Decrescendo of symptoms noted from onset. Bedside neuro recommende neuropsychologic testing. Bedside Polaris was 25/30. An EEG may also be recommended at neurology follow-up for absent seizure. This could also be repetitive embolic TIAs but less likely because of the same symptoms each time. (4) Cognitive decline: Status: Acute Problem details: Polaris 25/30. Recommend outpatient neuropsych evaluation. -inpatient summary and order faxed to Dr. Regan Call in [place] completed at discharge on 04/19/23 (5) Hyperbilirubinemia: Status: Acute Problem details: -this was not worked up as an inpatient but was noted to be increasing. This should be worked up as an outpatient. DS: Summary Hospital Course Hospital Course: FINAL DIAGNOSIS/FOLLOW UP ISSUES: Neurology: TIA, cognitive decline, rule out seizure disorder Cardiology: PFO Neuropsychology: Cognitive decline Primary care: Hyperbilirubinemia BRIEF HOSPITAL COURSE: Patient was admitted for 1 days. Synopsis of acute inpatient issues are outlined above. Chronic medical conditions with notable findings outlined above. DISCHARGE MEDICATIONS: See Reconciled list - SIGNIFICANT CHANGES: Aspirin and Plavix times 21 days. First day 04/19/2023 Specific instructions to the patient and follow-up are outlined below. REVIEW OF SYSTEMS No new chest pain or dyspnea Pain controlled No voiding difficulties Tolerating diet challenge PHYSICAL EXAM: CONSTITUTIONAL: VITAL SIGNS: see record. HEENT: Normocephalic, atraumatic. PERRL, EOMI, conjunctivae pink, no scleral icterus. Ears and nose externally normal. Pharynx normal. NECK: No JVD. No carotid bruit, no thyromegaly, no adenopathy. CHEST: Clear to auscultation bilaterally. HEART: S1 and S2 normal. Edema ABDOMEN: Soft, nontender. Normal bowel sounds. MUSCULOSKELETAL: No gross joint deformity or swelling. NEURO: Cranial nerves intact. Grossly intact. No asymmetric findings. SKIN: No rashes, petechiae, concerning changes PSYCHIATRIC: Mood euthymic. DISPOSITION: Home with Time spent on discharge 37 minutes. Status at Discharge Functional status at discharge: independent ambulation Overall status at discharge: patient is back to baseline Time Spent with Patient Time attestation: Total time spent providing and/or coordinating discharge services: Time spent: Greater than 30 minutes Exam Const: Vital Signs, click to edit/add: Vital Signs - 24 hr 04/18/23 17:22 04/18/23 17:24 04/18/23 17:31 Temperature Pulse Rate 56 L 50 L 54 L Pulse Rate [Pulse Oximeter] Pulse Rate [Right Pulse Oximeter] Respiratory Rate 14 Blood Pressure 121/81 128/81 Blood Pressure [Le ft Arm] Blood Pressure [Ri ght Upper Arm] Pulse Oximetry 97 99 99 Oxygen Delivery Me thod 04/18/23 17:47 04/18/23 18:02 04/18/23 18:17 Temperature Pulse Rate 51 L 51 L 50 L Pulse Rate [Pulse Oximeter] Pulse Rate [Right Pulse Oximeter] Respiratory Rate 14 12 12 Blood Pressure 147/96 H 115/102 H 128/84 Blood Pressure [Le ft Arm] Blood Pressure [Ri ght Upper Arm] Pulse Oximetry 100 99 99 Oxygen Delivery Me thod 04/18/23 18:31 04/18/23 18:46 04/18/23 18:56 Temperature 97.9 F Pulse Rate 48 L 54 L Pulse Rate [Pulse Oximeter] Pulse Rate [Right Pulse Oximeter] 60 Respiratory Rate 11 L 12 12 Blood Pressure 145/89 H 128/80 Blood Pressure [Le ft Arm] Blood Pressure [Ri ght Upper Arm] 145/81 H Pulse Oximetry 99 98 Oxygen Delivery Me thod Room Air 04/18/23 20:27 04/18/23 23:00 04/18/23 23:23 Temperature 97.7 F Pulse Rate 51 L Pulse Rate [Pulse Oximeter] 51 L 54 L Pulse Rate [Right Pulse Oximeter] Respiratory Rate 18 16 Blood Pressure Blood Pressure [Le ft Arm] 139/95 H 112/72 Blood Pressure [Ri ght Upper Arm] Pulse Oximetry 98 95 Oxygen Delivery Me thod Room Air Room Air 04/19/23 03:33 04/19/23 07:00 04/19/23 07:00 Temperature 98.2 F Pulse Rate 54 L Pulse Rate [Pulse Oximeter] 50 L 61 Pulse Rate [Right Pulse Oximeter] Respiratory Rate 16 16 Blood Pressure Blood Pressure [Le ft Arm] 108/63 Blood Pressure [Ri ght Upper Arm] Pulse Oximetry 96 Oxygen Delivery Me thod Room Air 04/19/23 07:00 04/19/23 11:00 Temperature 98.7 F 98.7 F Pulse Rate Pulse Rate [Pulse Oximeter] 61 58 L Pulse Rate [Right Pulse Oximeter] Respiratory Rate 16 16 Blood Pressure Blood Pressure [Le ft Arm] 100/70 117/73 Blood Pressure [Ri ght Upper Arm] Pulse Oximetry 95 95 Oxygen Delivery Me thod Room Air Room Air DS: Data Data Completed and Pending Labs on day of discharge: Labs from last 24 hours 04/19/23 04/19/23 04/19/23 13:17 12:17 08:05 WBC 3.41 L RBC 4.42 Hgb 14.6 Hct 44.0 MCV 100 MCH 33 MCHC 33 RDW Coeff of Cosmo 12.5 Plt Count 170 Neut % (Auto) 59.6 Lymph % (Auto) 24.0 [place] % (Auto) 12.3 H Eos % (Auto) 3.2 Baso % (Auto) 0.9 Neut # (Auto) 2.00 Lymph # (Auto) 0.80 L [place] # (Auto) 0.40 Eos # (Auto) 0.10 Baso # (Auto) 0.00 Abs Immat Gran (auto) 0.00 Imm/Tot Granulo (auto) 0.0 INR 1.06 Sodium 137 Potassium 4.3 Chloride 105 Carbon Dioxide 27 Anion Gap 5 L BUN 17 Creatinine 0.9 Estimated Creat Clear 87.28 Estimated GFR 98 Glucose 93 Hemoglobin A1c Cancelled Calcium 8.8 Total Bilirubin 2.6 H Direct Bilirubin 0.0 GGT 17 AST 25 ALT 15 Alkaline Phosphatase 39 L C-Reactive Protein < 0.5 L Total Protein 6.9 Albumin 4.1 LDL Cholesterol Direct Pending Lab Acknowledgement Test Added Test Added 04/19/23 04/18/23 04/18/23 07:50 14:23 13:50 WBC RBC Hgb Hct MCV MCH MCHC RDW Coeff of Cosmo Plt Count Neut % (Auto) Lymph % (Auto) [place] % (Auto) Eos % (Auto) Baso % (Auto) Neut # (Auto) Lymph # (Auto) [place] # (Auto) Eos # (Auto) Baso # (Auto) Abs Immat Gran (auto) Imm/Tot Granulo (auto) INR Sodium Potassium Chloride Carbon Dioxide Anion Gap BUN Creatinine Estimated Creat Clear Estimated GFR Glucose Hemoglobin A1c Calcium Total Bilirubin Direct Bilirubin GGT 18 AST ALT Alkaline Phosphatase C-Reactive Protein < 0.5 L Total Protein Albumin LDL Cholesterol Direct Lab Acknowledgement Test Added Test Added Discharge Plan Discharge Disposition: Home, Self-Care Date of Admission: 04/18/23 18:58 Primary Care Provider: Charlie Holland Condition: Improved Anticipated Discharge Date/Time: 04/19/23 13:50 Discharge Medications: New aspirin [Children's Aspirin] 81 mg Tablet,Chewable 81 mg PO DAILY Qty: 90 0RF clopidogrel [Plavix] 75 mg tablet 75 mg PO DAILY Qty: 30 0RF Continued Centrum Silver Men [id number] mcg tablet 1 tab PO DAILY omega [id number]-[id number]-[id number]-fish oil [Fish Oil] 1,000 mg (120 mg-180 mg) capsule 2 cap PO DAILY Discharge Orders: Discharge Order (Routine); Ordered 04/19/23 Ordered By: Maura Khan Patient Education: Aspirin (By mouth), Clopidogrel (By mouth), Transient Ischemic Attack (DC), Patent Foramen Ovale (GEN) Additional Instructions: 1. Neurology follow-up. I recommend either [facility] or [place]. There is a neurology group as close as [place] ([facility]) or [place]. Dr. Torres in [place] is highly recommended. TIA and hospital follow-up + EEG will likely be discussed to r/o seizure disorder 2. Neurocognitive testing (Dr. Gonzalez in [facility]) - Call Friday to make appt. 3. Cardiology Study (echocardiogram down the esophagus KATHY to better assess the PFO) and discuss closure of the PFO (patent foramen ovale and positive bubble test). [facility] or [place]. 4. Take aspirin and plavix once daily each morning 5. PCP can help coordinate all the referrals (neuro, cardio, neuropsychologist) 6. Elevated bilirubin - unsure what this is about - discuss with PCP and have f/u labs redrawn. Activity Level: Activity as Tolerated Discharge Diet: Regular Follow Up Appointments: Charlie Holland MD [Primary Care Provider] - 04/23/23 8:15 am ([place] ) Forms: [employer] Info Instructions
[2023-04-22 18:00] LABS: LDL Cholesterol, Direct 101 mg/dL (0-129)
== END 2023-04-19 15:00 | disposition home or self-care (01) ==
LOC: ED 18:11 → MEDSURG 18:59
PROVIDERS: Family Medicine; Admitting Provider Family Medicine; Emergency Provider Family Medicine; PCP Family Medicine; Visit Provider Family Medicine
DX: G45.9 Transient cerebral ischemic attack, unspecified (principal); Q21.12 Patent foramen ovale; R47.01 Aphasia; R41.89 Other symptoms and signs involving cognitive functions and awareness; R51.9 Headache, unspecified; E80.6 Other disorders of bilirubin metabolism; D12.6 Benign neoplasm of colon, unspecified; R41.3 Other amnesia; Z96.1 Presence of intraocular lens; Z98.49 Cataract extraction status, unspecified eye; Z98.890 Other specified postprocedural states
CPT/HCPCS: 36415; 70450; 70496; 70498; 70551; 80048; 80053; 80076; 80306; 81001; 82077; 82977; 83036; 83721; 83735; 84443; 85025; 85610; 86140; 93005; 93306; 99214; 99284; 99291; G0378; A9270; Q9967

== ENCOUNTER 2023-07-02 12:50 | Outpatient (CLI) | payer OTHER, SELFPAY ==
--- OUTSIDE RECORDS SUMMARY | 2023-07-02 12:54 | XMS_ITS | Clinical Summary ---
Author Name Unknown Organization [employer] [facility] [employer] [facility] Address [place], [place] [address] Care Team Providers Care Radiology Nurse Name Role Phone Charlie Holland MD Primary Care Provider Allergies No known active allergies Medications Medication Sig Dispensed Refills Start Date End Date Status Jzxah-0-NZH-EPA-Fish Oil (Fish OiL) 1,000 mg (120 mg-180 mg) cap Take 2 Capsules by mouth once daily. 0 03/14/2023 Active carboxymethylcellulos e (Refresh Celluvisc) 1 % eye gel in dropperette Place 1-2 Drops into both eyes once daily if needed (dry eyes). 0 03/14/2023 Active multivitamin capsule Take 1 Capsule by mouth once daily. 0 05/09/2023 Active levETIRAcetam (Keppra) 500 mg tabletIndications:Olga long (HC) Take 1 Tablet (500 mg) by mouth two times daily. 60 Tablet 1 05/26/2023 Active Active Problems No known active problems Encounters Date Type Department Care Team Description 05/26/[address] [facility] [place] [address] [phone] Karmen Wood NP Results (Abnormal EEG) 05/23/2023 10:13 AM QI SPECIALIST - 05/23/2023 11:59 PM QI SPECIALIST Hospital Encounter ANW EMG/EEG/EP [address] [phone] Karmen Wood NP Prelesnik, Jane D Transient speech disturbance 05/23/2023 Travel 05/19/2023 10:30 AM QI SPECIALIST Office Visit [facility] [place] [facility] [address] [place] [address] Mindy Akhtar MD 05/17/2023 Travel 05/09/2023 10:00 AM QI SPECIALIST Office Visit [facility] [address] [place] [phone] Karmen Wood NP Consult (Possible TIA) 05/08/2023 Travel 05/08/2023 Telephone [facility] [address] [place] [phone] Karmen Wood NP Appointment Reminder 04/29/2023 Office Visit [facility] [address] [place] [address] Toshia Ward DO 04/29/[address] [facility] [address] [place] [address] Karmen Wood NP Appointment Request (TIA follow-up request) 04/19/2023 9:25 AM CDT Orders Only [facility] [address] [place] [address] 7 scans: (5-Ord) [facility] 04/19/2023 Office Visit [address] [place] [address] Toshia Ward DO Telehealth (TS follow up visit ) 04/18/2023 Office Visit [facility] [address] [place] [address] Toshia Ward DO Telehealth ([place] TS code ) from Last 3 Months Immunizations Name Administration Dates Next Due AMB Influenza, IIV3 (Age >=3 years)(Flu Clinic O nly) 05/10/2008 Hepatitis A (Adult) 08/28/2006 Influenza, IIV4 03/09/2014 Td (Age >=7 Years) 08/28/1998 Tdap 08/28/2011 Typhoid (injectable) 08/28/2006 Family History Medical History Relation Name Comments Cancer Mother occular, mets t o spine Cancer-colon Neg. 1 Cancer-prostate Neg. 2 Diabetes Neg. 3 Heart Disease Neg. 4 Relation Name Status Comments Father Alive Mother Neg. 1 Neg. 2 Neg. 3 Neg. 4 Social History Tobacco Use Types Packs/Day Years Used Date Smoking Tobacco: Never Smokeless Tobacco: Never Tobacco Cessation:Counseling Given: Yes Alcohol Use Standard Drinks/Week Comments Yes 0 (1 standard drink = 0.6 oz pur e alcohol) social Social Connections Answer Date Recorded Frequency of Communication with Friends and Fami ly Not on file 05/09/2023 Sex and Gender Information Value Date Recorded Sex Assigned at Not on file Gender Identity Not on file Sexual Orientation Not on file Obstetrics History Last Filed Vital Signs Vital Sign Reading Time Taken Comments Blood Pressure 121/73 05/09/2023 9:45 AM QI SPECIALIST Pulse 53 05/09/2023 9:45 AM QI SPECIALIST Temperature 36.3 ??C (97.4 ??F) 03/09/2014 11:20 AM C DT Respiratory Rate - - Oxygen Saturation 100% 03/09/2014 11:20 AM CDT Inhaled Oxygen Concentration - - Weight 76.2 kg (168 lb) 05/09/2023 9:45 AM QI SPECIALIST Height 175.3 cm (5' 9) 05/09/2023 9:45 AM QI SPECIALIST Body Mass Index 24.81 05/09/2023 9:45 AM QI SPECIALIST Plan of Treatment Upcoming Encounters Date Type Department Care Team (Late st Contact Info) Description 07/30/2023 2:30 PM QI SPECIALIST Office Visit [facility] [place] [address] [phone] Koko Portillo MBBS [address] [place] [address] [facility] [address] [place] [address] Health Maintenance Due Date Last Done Comments Depression screening for age 12+ 1974 HIV for age 15-65 1977 Colonoscopy through age 75 12/16/2007 Zoster (shingles) series for age 50+ (1 of 2) 2012 Lipids for age 45-75 03/09/2019 03/09/2014, 09/03/2011, 07/17/2006 Tetanus booster 08/27/2021 08/28/2011, 08/28/1998 COVID-19 vaccine series (2022-24 season) 2023 02/26/2022, 09/20/2021, 04/21/2021, Additional history exists Influenza for age 50-64 02/21/2023 03/09/2014, 05/10 BMI (ht and wt on same day) for age 18+ 05/09/2024 05/09/2023 Tdap Completed 08/28/2011 Hepatitis C screening for age 18-79 Completed 03/09/2014 Pneumococcal series for age 6-64 Aged Out No longer eligible based on patient's age to complete this topic Procedures Procedure Name Priority Date/Time Associated Diagnosis Comments EEG Routine 05/23/2023 10:30 AM QI SPECIALIST Transient speech disturbance SCAN CORRESP-EKG RESULTS 04/29/2023 11:36 AM QI SPECIALIST SCAN CORRESP-LABORATORY RESULTS 04/29/2023 11:36 AM QI SPECIALIST SCAN CORRESP-IMAGING 04/29/2023 11:36 AM QI SPECIALIST ECHO TTE COMPLETE WO CONTRAST W BUBBLE Routine 04/19/2023 12:12 PM CDT TIA (transient ischemic attack) from Last 3 Months Results * EEG (05/23/2023 10:30 AM QI SPECIALIST) Narrative Casey Louis MD - 05/23/2023 10:30 AM QI SPECIALIST Casey Louis MD ? 05/23/2023 12:51 PM Procedure Date: May 23, 2023 Clinical History: 62 y/o with recurrent stereotypic spells. Recording Conditions: Cykrfy-vei-zzswcn video EEG recording performed during wakefulness and drowsiness. EEG Description: Background rhythm in the quiet awake state consisted of a posterior dominant rhythm of 9 Hz. The rhythm was symmetrical and attenuated as a normal response to eye opening. There was a continuous irregular medium amplitude left anterior temporal delta slowing maximal at electrode F7. There was waxing and waning of background rhythm suggesting a drowsy state. Activations: Hyperventilation was not performed due to medical history. Photic stimulation elicited no EEG abnormalities. Patient Events: None EKG Channel: Regular rhythm [facility] EEG Classification: Abnormal II (awake, drowsy) Continuous slowing, regional left anterior temporal Clinical Interpretation: 1. This EEG shows evidence of left temporal cerebral disturbance. 2. No definite epileptiform potentials were seen. 3. If the clinical suspicion for epileptic seizures remains high and if clinically indicated, a more prolonged recording such as an ambulatory EEG or long-term video EEG may provide additional diagnostic information. Casey Louis MD Diplomate ABPN: Neurology, Epileptology and Clinical Neurophysiology Karmen Wood NP NEUROLOGY ORD * SCAN CORRESP-LABORATORY RESULTS (04/29/2023 11:36 AM QI SPECIALIST) Narrative 04/29/2023 11:36 AM QI SPECIALIST Ordered by an unspecified provider. Other Clinical Staff OTHER * SCAN CORRESP-EKG RESULTS (04/29/2023 11:36 AM QI SPECIALIST) Narrative 04/29/2023 11:36 AM QI SPECIALIST Ordered by an unspecified provider. Other Clinical Staff OTHER * SCAN CORRESP-IMAGING (04/29/2023 11:36 AM QI SPECIALIST) Anatomical Region Laterality Modality Ultrasound Narrative 04/29/2023 11:36 AM QI SPECIALIST Ordered by an unspecified provider. Other Clinical Staff OTHER * ECHO TTE COMPLETE WO CONTRAST W BUBBLE (04/19/2023 12:12 PM CDT) AORTIC VALVE MEAN PG 8 mmHg EJECTION FRACTION 59 % PEAK TR VELOCITY 2.5 m/s LVEDD 3.9 cm Anatomical Region Laterality Modality Ultrasound 04/19/2023 11:2 0 AM CDT Narrative 04/19/2023 12:43 PM CDT ECHOCARDIOGRAM DEMARCUS YOUNGBLOOD ? Accession#: ?? [id number] : ?1960 62 years Study Date: ?? 04/19/2023 11:20:47 AM Gender: M ?BP: ? 108/63 mmHg Height: 175.00 cm ?BSA: ?1.91 m? ? ? Weight: 76.00 kg ? Tech: ? MJW ? Referring MD: NII HELMS Site: ? [facility] Reading Location: [facility] Patient Location: Inpatient. Procedure: 2D, 2D w/ Bubbles, Color Doppler and Spectral Doppler. Indication for study: TIA Cardiac Rhythm: Regular.Study quality: Final Impressions: 1. Normal left ventricular size, mildly increased wall thickness, normal global systolic function, calculated EF of 59 %. 2. Right ventricular cavity size is normal, global systolic RV function is normal. 3. The aortic valve is trileaflet and sclerotic, no stenosis and no regurgitation. 4. Very mild bileaflet mitral valve prolapse with trace MR. 5. Normal estimated RA (3 mmHg) and RV systolic (28 mmHg) pressures. 6. With agitated saline contrast there are sparse bubbles evident in LA/LV. Timing relative to opacification of right sided structures with contrast cannot be determined to discriminate cardiac and pulmonary sites of shunting. Qualitatively similar results with Valsalva. No atrial level shunt evident by color Doppler. Comparison There are no prior studies on this patient for comparison purposes. Chamber Sizes and Function Normal left ventricular size, mildly increased wall thickness, normal global systolic function, calculated EF of 59 %. Left atrial size is normal. Right ventricular cavity size is normal, global systolic RV function is normal. RV wall thickness is normal. The right atrium is normal. Right atrial volume index is 33 ml/m? ? ?. Right atrial area is 21 cm? ? ?. The pulmonary artery is of normal size and origin. The sinus of Valsalva is normal sized. The ascending aorta is normal sized. Valves, RV Pressures and Diastolic Function The aortic valve is trileaflet and sclerotic, no stenosis and no regurgitation. The mitral valve is normal in structure, trace mitral regurgitation. There is mild prolapse of the anterior leaflet and posterior leaflet of the mitral valve. Normal diastolic function. The tricuspid valve is normal in structure. Tricuspid regurgitation is mild regurgitation. The tricuspid regurgitant velocity is 2.5 m/s, the estimated right ventricular systolic pressure is 25 mmHg plus right atrial pressure. The pulmonic valve is normal. No pulmonary regurgitation. Masses, Effusion, Shunts There is no pericardial effusion. The inferior vena cava is normal sized, respiratory size variation greater than 50%. Interatrial septum is not well visualized. MEASUREMENTS AND CALCULATIONS 2-D Measurements and LV Function: LVID (d) 3.9 cm Planimetered EF 59 % LVID (s) 3.3 cm LV FS% (2D) ? 17 % IVS (d) ??1.3 cm LVOT diameter ?? 2.4 cm LVPW (d) 0.9 cm HR ?56 bpm Ao Sinus 3.3 cm LA Vol index ?29 ml/m2 Asc Ao ?? 3.1 cm RA Vol index ?33 ml/m2 LA ? 4.2 cm RA area ? 21 cm?RV Max 4C (d) ?? 4.3 cm Diastology: Mitral ?Tissue Doppler E Peak 0.9 m/s ??e', Septum ? 0.10 m/s A Peak 0.6 m/s ??e', Lateral ?0.12 m/s E/A ?1.7 ?E/e' Average ?? 8.55 DT ? 192 msec Aortic Valve: Vmax ? 1.8 m/s ??PARRISH (V) ?? 3.31 cm? ? ? VTI ?0.39 m ?? PARRISH (I) ?? 2.92 cm? ? ? LVOT V max ? 1.3 m/s ??Max PG ?13 mmHg LVOT VTI ? 0.26 m ?? Mean PG ?? 8 mmHg SV ? 114 ml ?? Dim Index 0.67 SV index ? 59 ml/m? ? ? CO ?6.4 l/min AV Ejection Time 0.31 sec CI ?3.3 l/min/m? ? ? AV Flow Rate ? 361 ml/s Mitral Valve: MVA ?4.0 cm? ? ? MV P 1/2 56 msec Tricuspid Valve and estimated PA pressures: TR Vmax 2.5 m/s TAPSE 2.4 cm TR maxG 25 mmHg . This study was interpreted by an [facility] accredited facility. CC: Med/Surg - IP [facility] (med records) [facility]. ??Final ?? Procedure Note Suresh Cruz MD - 04/19/2023 ECHOCARDIOGRAM DEMARCUS YOUNGBLOOD : 1960 62 years Study Date: 04/19/2023 11:20:47 AM Gender: M BP: 108/63 mmHg Height: 175.00 cm BSA: 1.91 m? ? ? Weight: 76.00 kg Tech: MITCHEL Referring MD: NII HELMS Site: [facility] Reading Location: [facility] Patient Location: Inpatient. Procedure: 2D, 2D w/ Bubbles, Color Doppler and Spectral Doppler. Indication for study: TIA Cardiac Rhythm: Regular.Study quality: Final Impressions: 1. Normal left ventricular size, mildly increased wall thickness, normalglobal systolic function, calculated EF of 59 %. 2. Right ventricular cavity size is normal, global systolic RV functionis normal. 3. The aortic valve is trileaflet and sclerotic, no stenosis and noregurgitation. 4. Very mild bileaflet mitral valve prolapse with trace MR. 5. Normal estimated RA (3 mmHg) and RV systolic (28 mmHg) pressures. 6. With agitated saline contrast there are sparse bubbles evident inLA/LV. Timing relative to opacification of right sided structures withcontrast cannot be determined to discriminate cardiac and pulmonary sitesof shunting. Qualitatively similar results with Valsalva. No atrial levelshunt evident by color Doppler. Comparison There are no prior studies on this patient for comparison purposes. Chamber Sizes and Function Normal left ventricular size, mildly increased wall thickness, normalglobal systolic function, calculated EF of 59 %. Left atrial size isnormal. Right ventricular cavity size is normal, global systolic RVfunction is normal. RV wall thickness is normal. The right atrium isnormal. Right atrial volume index is 33 ml/m? ? ?. Right atrial area is 21cm? ? ?. The pulmonary artery is of normal size and origin. The sinus ofValsalva is normal sized. The ascending aorta is normal sized. Valves, RV Pressures and Diastolic Function The aortic valve is trileaflet and sclerotic, no stenosis and noregurgitation. The mitral valve is normal in structure, trace mitralregurgitation. There is mild prolapse of the anterior leaflet andposterior leaflet of the mitral valve. Normal diastolic function. Thetricuspid valve is normal in structure. Tricuspid regurgitation is mildregurgitation. The tricuspid regurgitant velocity is 2.5 m/s, theestimated right ventricular systolic pressure is 25 mmHg plus right atrialpressure. The pulmonic valve is normal. No pulmonary regurgitation. Masses, Effusion, Shunts There is no pericardial effusion. The inferior vena cava is normal sized,respiratory size variation greater than 50%. Interatrial septum is notwell visualized. MEASUREMENTS AND CALCULATIONS 2-D Measurements and LV Function: LVID (d) 3.9 cm Planimetered EF 59 % LVID (s) 3.3 cm LV FS% (2D) 17 % IVS (d) 1.3 cm LVOT diameter 2.4 cm LVPW (d) 0.9 cm HR 56 bpm Ao Sinus 3.3 cm LA Vol index 29 ml/m2 Asc Ao 3.1 cm RA Vol index 33 ml/m2 LA 4.2 cm RA area 21 cm? ? ? RV Max 4C (d) 4.3 cm Diastology: Mitral Tissue Doppler E Peak 0.9 m/s e', Septum 0.10 m/s A Peak 0.6 m/s e', Lateral 0.12 m/s E/A 1.7 E/e' Average 8.55 DT 192 msec Aortic Valve: Vmax 1.8 m/s PARRISH (V) 3.31 cm? ? ? VTI 0.39 m PARRISH (I) 2.92 cm? ? ? LVOT V max 1.3 m/s Max PG 13 mmHg LVOT VTI 0.26 m Mean PG 8 mmHg SV 114 ml Dim Index 0.67 SV index 59 ml/m? ? ? CO 6.4 l/min AV Ejection Time 0.31 sec CI 3.3 l/min/m? ? ? AV Flow Rate 361 ml/s Mitral Valve: MVA 4.0 cm? ? ? MV P 1/2 56 msec Tricuspid Valve and estimated PA pressures: TR Vmax 2.5 m/s TAPSE 2.4 cm TR maxG 25 mmHg . This study was interpreted by an [facility] accredited facility. CC: Med/Surg - IP [facility] (med records) [facility]. Final Nii Nguyen MD ECHO ORD from Last 3 Months Care Teams Radiology Nurse Relationship Specialty Start Date End Date Charlie Holland MD [address] [place] [phone] PCP - General Family Practice 04/29/23
[2023-07-02 12:55] VITALS: BP 122/67; PULSE 49; RESP 16; O2SAT 98
[2023-07-02] MEDS: TETRACAINE 0.5% OPHTH 1 DROP EYE-LEFT ×3 (12:58→13:23)
[2023-07-02] MEDS: BRIMONIDINE TARTRATE 0.2% OPHTH 1 DROP EYE-LEFT ×2 (12:59→13:28)
--- NOTE | 2023-07-02 13:46 | W.PM.OPTPROC ---
Procedure Note Date of procedure: 07/02/[address] [facility] bill your pro fee for this procedure?: Yes Procedure Description: SURGEON: Radha Morrison MD PREOPERATIVE DIAGNOSIS: Posterior capsular opacity, left eye POSTOPERATIVE DIAGNOSIS: Posterior capsular opacity, left eye PROCEDURE: YAG laser capsulotomy, left eye ANESTHESIA: Topical. ESTIMATED BLOOD LOSS: None PATHOLOGY SPECIMEN: None COMPLICATIONS: None INDICATIONS: See consult note for details. The risks, benefits and alternatives of the procedure were explained to the patient, who elected to proceed and signed informed consent to do so. PROCEDURE: The patient was brought to the pre-holding area where the left eye was identified as the operative eye. I placed my initials above this eye. The patient received 2 sets of 1 drop of 0.5% tetracaine and 1 drop of 1% tropicamide. They also received 1 drop of 0.2% brimonidine. They received 1 drop of 0.5% tetracaine immediately prior to bringing them back for the procedure. The patient was then brought to the procedure room where the left eye was again identified as the operative eye. A YAG Joni capsulotomy lens was placed on the eye. The laser was administered using a total number of 8 shots with an energy of 2.4 mJ per shot for a total energy of 19 mJ. The patient tolerated the procedure well. DISPOSITION: The patient was taken back to the pre-holding area and given 1 drop of 0.2% brimonidine in the left eye. They were discharged to home in stable condition. The patient was instructed to call me or go to the emergency department with any sudden change, including dramatic loss of vision, severe pain in the eye or eyebrow region, nausea, or vomiting. The patient was instructed to use the 0.2% brimonidine 1 drop 2 times a day in the left eye for 1 week. The patient will follow up in the clinic in 1-2 weeks
== END 2023-07-02 13:30 | disposition home or self-care (01) ==
LOC: EYE PRC 12:50
PROVIDERS: PCP Family Medicine; Visit Provider Ophthalmology
DX: H26.9 Unspecified cataract (principal)
CPT/HCPCS: 66821; A9270

== ENCOUNTER 2023-07-11 07:30 | Outpatient (CLI) | payer OTHER, SELFPAY ==
--- OUTSIDE RECORDS SUMMARY | 2023-07-15 07:58 | XMS_ITS | Clinical Summary ---
Author Name Unknown Organization [employer] [facility] [employer] [employer] Address [place], [place] [address] Care Team Providers Care Auger Machine Offbearer Name Role Phone Charlie Holland MD Primary Care Provider [phone] Allergies No known active allergies Medications Medication Sig Dispensed Refills Start Date End Date Status Hajwx-9-XZR-EPA-Fish Oil (Fish OiL) 1,000 mg (120 mg-180 [...] Type Department Care Team Description 05/26/2023 Telephone [facility] [place] [address] [phone] Karmen Wood NP Results (Abnormal EEG) 05/23/2023 10:13 AM PRODUCTION WORKER - 05/23/2023 11:59 PM PRODUCTION WORKER Hospital Encounter [facility] EMG/EEG/EP [address] [phone] Karmen Wood NP Prelesnik, Jane D Transient speech disturbance 05/23/2023 Travel 05/19/2023 10:30 AM PRODUCTION WORKER Office Visit [facility] [place] [facility] [address] [place] [address] Mindy Akhtar MD 05/17/2023 Travel 05/09/2023 10:00 AM PRODUCTION WORKER Office Visit [facility] [address] [place] [phone] Karmen Wood NP Consult (Possible TIA) 05/08/2023 Travel 05/08/2023 Telephone [facility] [address] [place] [phone] Karmen Wood NP Appointment Reminder 04/29/2023 Office Visit [facility] [address] [place] [address] Toshia Ward DO 04/29/2023 Telephone [facility] [address] [place] [address] Karmen Wood NP Appointment Request (TIA follow-up request) 04/19/2023 9:25 AM CDT Orders Only [facility] [address] [place] [address] 7 scans: (5-Ord) [facility] 04/19/2023 Office Visit [address] [place] [address] Toshia Ward DO Telehealth (TS follow up visit ) 04/18/2023 Office Visit [facility] [address] [place] [address] Toshia Ward DO Telehealth ([place] TS code ) from Last 3 Months [...] Comments Blood Pressure 121/73 05/09/2023 9:45 AM PRODUCTION WORKER Pulse 53 05/09/2023 9:45 AM PRODUCTION WORKER Temperature 36.3 ??C (97.4 ??F) 03/09/2014 11:20 AM C DT Respiratory Rate - - Oxygen Saturation 100% 03/09/2014 11:20 AM CDT Inhaled Oxygen Concentration - - Weight 76.2 kg (168 lb) 05/09/2023 9:45 AM PRODUCTION WORKER Height 175.3 cm (5' 9) 05/09/2023 9:45 AM PRODUCTION WORKER Body Mass Index 24.81 05/09/2023 9:45 AM PRODUCTION WORKER Plan of Treatment Upcoming Encounters Date Type Department Care Team (Late st Contact Info) Description 07/30/2023 2:30 PM PRODUCTION WORKER Office Visit [facility] [place] [address] [phone] Koko Portillo MBBS [address] [place] [address] [facility] [address] [place] [address] Health Maintenance Due Date Last Done Comments [...] Diagnosis Comments EEG Routine 05/23/2023 10:30 AM PRODUCTION WORKER Transient speech disturbance SCAN CORRESP-EKG RESULTS 04/29/2023 11:36 AM PRODUCTION WORKER SCAN CORRESP-LABORATORY RESULTS 04/29/2023 11:36 AM PRODUCTION WORKER SCAN CORRESP-IMAGING 04/29/2023 11:36 AM PRODUCTION WORKER ECHO TTE COMPLETE WO CONTRAST W BUBBLE Routine 04/19/2023 12:12 PM CDT TIA (transient ischemic attack) from Last 3 Months Results * EEG (05/23/2023 10:30 AM PRODUCTION WORKER) Narrative Casey Louis MD - 05/23/2023 10:30 AM PRODUCTION WORKER Casye Louis MD ? 05/23/2023 12:51 PM Procedure Date: May 23, 2023 Clinical History: 62 y/o with recurrent stereotypic spells. Recording Conditions: Ylybkq-iwk-njcbkt video EEG recording performed during wakefulness and [...] Patient Events: None EKG Channel: Regular rhythm [facility] EEG Classification: Abnormal II (awake, drowsy) Continuous [...] * SCAN CORRESP-LABORATORY RESULTS (04/29/2023 11:36 AM PRODUCTION WORKER) Narrative 04/29/2023 11:36 AM PRODUCTION WORKER Ordered by an unspecified provider. Other Clinical Staff OTHER * SCAN CORRESP-EKG RESULTS (04/29/2023 11:36 AM PRODUCTION WORKER) Narrative 04/29/2023 11:36 AM PRODUCTION WORKER Ordered by an unspecified provider. Other Clinical Staff OTHER * SCAN CORRESP-IMAGING (04/29/2023 11:36 AM PRODUCTION WORKER) Anatomical Region Laterality Modality Ultrasound Narrative 04/29/2023 11:36 AM PRODUCTION WORKER Ordered by an unspecified provider. Other Clinical Staff OTHER * ECHO TTE COMPLETE WO CONTRAST W BUBBLE (04/19/2023 12:12 PM CDT) AORTIC VALVE MEAN PG 8 mmHg EJECTION FRACTION 59 % PEAK TR VELOCITY 2.5 m/s LVEDD 3.9 cm Anatomical Region Laterality Modality Ultrasound 04/19/2023 11:2 0 AM CDT Narrative 04/19/2023 12:43 PM CDT ECHOCARDIOGRAM DEMARCUS YOUNGBLOOD ? Accession#: ?? [id number] : ?1960 62 years Study Date: ?? 04/19/2023 11:20:47 AM Gender: M ?BP: ? 108/63 mmHg Height: 175.00 cm ?BSA: ?1.91 m? ? ? Weight: 76.00 kg ? Tech: ? MJW ? Referring MD: NII HELMS Site: ? [facility] Reading Location: [facility] Patient Location: Inpatient. Procedure: 2D, 2D w/ [...] . This study was interpreted by an [facility] accredited facility. CC: Med/Surg - IP [facility], [facility] (med records) [facility]. ??Final ?? Procedure Note Suresh Cruz MD - 04/19/2023 ECHOCARDIOGRAM DEMARCUS YOUNGBLOOD : 1960 62 years Study Date: 04/19/2023 11:20:47 AM Gender: M BP: 108/63 mmHg Height: 175.00 cm BSA: 1.91 m? ? ? Weight: 76.00 kg Tech: MITCHEL Referring MD: NII HELMS Site: [facility] Reading Location: [facility] Patient Location: Inpatient. Procedure: 2D, 2D w/ [...] . This study was interpreted by an [facility] accredited facility. CC: Med/Surg - IP [facility], [facility] (med records) [facility]. Final Nii Nguyen MD ECHO ORD from Last 3 Months Care Teams Auger Machine Offbearer Relationship Specialty Start Date End Date Charlie Holland MD [address] [place] [phone] PCP - General Family Practice 04/29/23
== END 2023-07-11 07:31 | disposition home or self-care (01) ==
LOC: NFLDREF 07-15 07:56
PROVIDERS: PCP Family Medicine; Referring Provider Family Medicine; Visit Provider Family Medicine
DX: Z13.220 Encounter for screening for lipoid disorders (principal); Z12.5 Encounter for screening for malignant neoplasm of prostate
CPT/HCPCS: 80053; 80061; G0103

== ENCOUNTER 2024-07-19 07:30 | Outpatient (CLI) | payer OTHER, SELFPAY | END 2024-07-19 07:31 | disposition home or self-care (01) | LOC: NFLDREF 07-26 01:14 | PROVIDERS: PCP Family Medicine; Referring Provider Family Medicine; Visit Provider Family Medicine | DX: E78.5 Hyperlipidemia, unspecified (principal); E80.6 Other disorders of bilirubin metabolism; Z12.5 Encounter for screening for malignant neoplasm of prostate; R53.83 Other fatigue | CPT/HCPCS: 80053; 80061; G0103 ==

== ENCOUNTER 2024-07-21 08:08 | Outpatient (CLI) | payer OTHER, SELFPAY | END 2024-07-21 08:09 | disposition home or self-care (01) | LOC: NFLDREF 08:09 | PROVIDERS: PCP Family Medicine; Visit Provider Family Medicine | DX: R53.83 Other fatigue (principal); Z13.29 Encounter for screening for other suspected endocrine disorder | CPT/HCPCS: 84443 ==

== ENCOUNTER 2024-08-19 12:03 | Outpatient (CLI) | payer OTHER, SELFPAY ==
--- NOTE | 2024-08-19 13:19 | W.ANESCHARGE ---
Anesthesia Charges Start Date/Time Anesthesia Start Date: 08/19/24 Anesthesia Start Time: 12:41 Stop Date/Time Anesthesia Stop Date: 08/19/24 Anesthesia Stop Time: 13:25 Coding CPT Codes CPT Codes: LUIZA LWR INTST NDSC NOS - [id number] ([id number]) P2 - PATIENT W/MILD SYST DISEASE, QK - MAIL CARRIER AND CLERK 2-4 CNCRNT ANES PROC, QX - ANIMAL HANDLER SVC W/ MD MED DIRECTION
--- NOTE | 2024-08-19 13:26 | W.ANESCHARGE ---
Anesthesia Charges Start Date/Time Anesthesia Start Date: 08/19/24 Anesthesia Start Time: 12:41 Stop Date/Time Anesthesia Stop Date: 08/19/24 Anesthesia Stop Time: 13:25 Coding CPT Codes CPT Codes: LUIZA LWR INTST NDSC NOS - [id number] ([id number]) P2 - PATIENT W/MILD SYST DISEASE, QK - TECHNOLOGY CONSULTANT 2-4 CNCRNT ANES PROC, QX - ELECTRICAL INSTRUMENTATION TECHNICIAN SVC W/ MD MED DIRECTION
== END 2024-08-19 12:04 | disposition home or self-care (01) ==
LOC: OP CLINIC 12:03
PROVIDERS: PCP Family Medicine; Visit Provider Surgery
DX: Z12.11 Encounter for screening for malignant neoplasm of colon (principal); D12.0 Benign neoplasm of cecum; D12.1 Benign neoplasm of appendix; D12.8 Benign neoplasm of rectum; K64.8 Other hemorrhoids; Z86.0100 Personal history of colon polyps, unspecified
CPT/HCPCS: 00811; 45385; 88305; J2704